=== PATIENT | male | born 1940 | race Caucasian/White ===

== ENCOUNTER 2023-03-18 14:32 | Emergency (ER) | payer BC | END 2023-03-18 17:16 | disposition home or self-care (01) | LOC: JP.ED 14:32 | DX: R55 Syncope and collapse (principal); I10 Essential (primary) hypertension; E03.9 Hypothyroidism, unspecified; Z88.5 Allergy status to narcotic agent; Z88.2 Allergy status to sulfonamides | CPT/HCPCS: 99283; 99284 ==